=== PATIENT | male | born 1975 | race Asian ===

== ENCOUNTER 2019-08-06 21:03 | Emergency (ER) | payer OTHER ==
[~2019-08-06] VITALS: Ht 182.9 cm; Wt 78.0 kg
[2019-08-06 21:09] VITALS: Ht 182.9 cm; Wt 78.0 kg
[2019-08-06 23:03] VITALS: BP 130/85
== END 2019-08-06 23:03 | disposition home or self-care (01) ==
LOC: ED 21:03
DX: S61.411A Laceration without foreign body of right hand, initial encounter (principal); W26.0XXA Contact with knife, initial encounter; Y93.89 Activity, other specified; Y92.89 Other specified places as the place of occurrence of the external cause; Y99.8 Other external cause status
CPT/HCPCS: 90715; J2001